=== PATIENT | female | born 1995 | race Caucasian/White ===

== ENCOUNTER 2017-01-25 18:13 | Emergency (ER) | payer OTHER ==
[2017-01-25 18:15] VITALS: BP 150/90; PULSE 110; RESP 25; O2SAT 100
--- NOTE | 2017-01-25 18:19 | PD ---
Physical Exam Time Seen by Provider: 18:18 Narrative 21yo C/o multiple laceration to left arm; r hand lacerations and R hand pain; decreased ROM to R 4th finger from dog bite wounds. Patient seen in triage. VS reviewed. Patient awaiting bed placement. Data Data Last Documented VS Vital Signs Date Time Temp Pulse Resp B/P Pulse Ox O2 Delivery O2 Flow Rate FiO2 01/25/17 18:15 110 25 150/90 100 MDM Supervised Visit with ROSEANN: Juani Lane Jan 25, 2017 18:19
--- NOTE | 2017-01-25 19:11 | PD ---
HPI Chief Complaint: Bite or Sting Time Seen by Provider: 19:09 Travel History International Travel<30 days: No Contact w/Intl Traveler<30days: No Traveled to known affect area: No History of Present Illness HPI Patient is a 21-year-old female presents emergency department for evaluation after a dog bite. Patient states she was trying to back and her new Labrador which she just adopted over for food and he bit her several times on the left upper extremity and once on the right hand. She is right-hand dominant. She states that the dog was adopted and pretty sure that the adoption agency vaccinations all the dogs prior to releasing them. She denies any injury to her neck head back chest abdomen or pelvis. States the incident happened just prior to arrival. Unclear when her last tetanus shot was. PFSH Past Medical History Medical History: Denies Significant Hx Past Surgical History Surgical History: No Previous Surgery Family History Family History: Negative Social History Tobacco Use: No Allergies-Medications (Allergen,Severity, Reaction): Coded Allergies: No Known Allergies (Unverified , 01/25/17) Reported Meds & Prescriptions Reported Meds & Active Scripts Active Augmentin (Amoxicillin-Clavulanate) 875-125 Mg Tab 1 Tab PO BID 10 Days Percocet (Oxycodone-Acetaminophen) 5-325 mg Tab 1 Tab PO Q6H PRN Review of Systems Except as stated in HPI: all other systems reviewed are Neg Physical Exam Narrative GENERAL: Well-nourished, well-developed patient. SKIN: Focused skin assessment warm/dry. Patient is a total of 4 lacerations and 12 puncture wounds to the left upper extremity, she also has a puncture room over the palmar aspect of the right ring finger as well as several small punctate abrasions to the right hand. The lacerations are over her humerus 2 over her dorsal forearm and one of her volar forearm. The largest is 2 cm over the humerus, there is a 1-1/2 cm laceration over the volar aspect distal forearm , one and a half centimeter over the dorsal aspect of the distal forearm, a V- shaped laceration over the mid dorsal forearm. Scattered puncture wounds throughout her entire left upper extremity. HEAD: Normocephalic. EYES: No scleral icterus. No injection or drainage. NECK: Supple, trachea midline. No JVD or lymphadenopathy. CARDIOVASCULAR: Regular rate and rhythm without murmurs, gallops, or rubs. RESPIRATORY: Breath sounds equal bilaterally. No accessory muscle use. GASTROINTESTINAL: Abdomen soft, non-tender, nondistended. MUSCULOSKELETAL: No cyanosis, or edema. Patient has full flexion and extension at all PIP DIP and MCP joints, full flexion and extension of the risk and elbow , opposition abduction and abduction and flexion extension of the thumbs are intact and equal bilaterally. Brisk capillary refill in all 10 digits. Bounding equal bilateral radial pulses. No obvious deformities. BACK: Nontender without obvious deformity. No CVA tenderness. Data Data Last Documented VS Vital Signs Date Time Temp Pulse Resp B/P Pulse Ox O2 Delivery O2 Flow Rate FiO2 01/25/17 18:15 110 25 150/90 100 Orders Hand, Complete ([id number]) (01/25/17 18:20) Forearm (2vws) (01/25/17 18:20) Piperacil-Tazo 4.5 Gm Premix (Zosyn 4.5 (01/25/17 19:15) Morphine Inj (Morphine Inj) (01/25/17 19:15) Azbf-Cmp-Yzthje (Booster) Inj (Boostrix (01/25/17 19:15) Lidocaine 1% Inj (50 Ml) (Xylocaine 1% I (01/25/17 20:00) Splint Or Brace Apply/Monitor (01/25/17 20:05) Lidocaine Pf 1% Inj (Xylocaine-Mpf 1% In (01/25/17 20:09) Finger Splint (01/25/17 ) MDM Medical Decision Making Medical Screen Exam Complete: Yes Emergency Medical Condition: Yes Differential Diagnosis Dog bite, fracture, open fracture, lacerations Narrative Course Patient was roomed in the emergency department, all of her wounds were irrigated copiously by emergency room tech with normal saline. I've inspected all the wounds and see no foreign bodies, several of the wounds required some approximation but this was done very loosely so that the wounds can continue to drain. She was given Zosyn emergency department. The patient was discussed with Dr. Silva who will see in follow-up and agrees with the management in the emergency department. Last 24 hours Impressions Radius/Ulna X-Ray 01/25/17 1820 Signed Impressions: Service Date/Time: Wednesday, January 25, 2017 18:51 - CONCLUSION: Osseous structures of the forearm are intact. Brooks Meneses MD Hand X-Ray 01/25/17 0250 Signed Impressions: Service Date/Time: Wednesday, January 25, 2017 18:54 - CONCLUSION: Displaced oblique fracture of the 4th digit proximal phalanx. Brooks Meneses MD Discussed the findings with the patient and recommended that she follow-up with Dr. Blum, she was placed in a splint. Wound instructions and had an extensive conversation about monitoring the dog for signs symptoms of rabies and illness and contacting the adoption agency to find out if the dog was indeed vaccinated. Discussed if there is any question as to the dog's rabies status to return to the emergency department for vaccinations. This does not sound like an unprovoked attack and I think the risk of rabies is relatively low. Procedures Procedure Narrative LACERATION LOCATION: Left upper extremity LENGTH: 4 lacerations totaling 6-1/2 cm NUMBER OF STITCHES/JERRI: 5 REPAIR: The area of the laceration was prepped with Betadine and sterilely draped. The laceration was infiltrated with Lidocaine 1% plain. The wound was copiously irrigated and explored without evidence of foreign body, tendon injury or neurovascular injury. The wound was closed using 30 proline. This was a single layer repair. A sterile dressing was applied. The patient was advised to keep the dressing clean and dry. Patient tolerated the procedure well. Diagnosis Primary Impression: Dog bite Additional Impression: Open fracture of phalanx of right ring finger Scripts Amoxicillin-Clavulanate (Augmentin)875-125 Mg Tab1 Tab PO BID 10 Days Ref 0 Prov:Jason Kumar MD 01/25/17 Oxycodone-Acetaminophen (Percocet)5-325 mg Tab1 Tab PO Q6H PRN (PAIN) #10 TAB Ref 0 Prov:Jason Kumar MD 01/25/17 Disposition: 01 DISCHARGE HOME Condition: Stable Jason Kumar MD Jan 25, 2017 19:11
[2017-01-25] MEDS ORDERED: MORPHINE SULFATE 8 MG/ML INJ IV PUSH ONE (19:15)
[2017-01-25] MEDS ORDERED: DIPHTH/TETANUS/ACEL PERTUSSIS (BOOSTER) 0.5 ML VIAL/PFS IM ONE (19:15)
[2017-01-25] MEDS ORDERED: PIPERACIL-TAZO 4.5 GM PREMIX 100 ML IV ONE (19:15)
--- NOTE | 2017-01-25 19:56 | RADRPT ---
EXAM DATE/TIME: 01/25/2017 18:51 [facility] COMPARISON: No previous studies available for comparison. INDICATIONS : Left forearm puncture wounds. Dog bite. MEDICAL HISTORY : None. SURGICAL HISTORY : None. ENCOUNTER: Initial ACUITY: 1 day PAIN SCORE: 7/10 LOCATION: Left forearm. FINDINGS: Two view examination of the left forearm demonstrates no evidence of fracture or dislocation. Bony m ineralization is normal. There are several areas of soft tissue irregularity and some subcutaneous g as along the lateral aspect of the distal forearm. No definite radiopaque foreign bodies.. CONCLUSION: Osseous structures of the forearm are intact. Brooks Meneses MD on January 25, 2017 at 19:53 Board Certified Radiologist. This report was verified electronically.
--- NOTE | 2017-01-25 19:57 | RADRPT ---
EXAM DATE/TIME: 01/25/2017 18:54 [facility] COMPARISON: No previous studies available for comparison. INDICATIONS : Right hand puncture wounds. Right ring finger swelling. Dog bit. MEDICAL HISTORY : None. SURGICAL HISTORY : None. ENCOUNTER: Initial ACUITY: 1 day PAIN SCORE: 7/10 LOCATION: Right hand. FINDINGS: There is an oblique fracture through the midshaft of the proximal phalanx of the 4th digit with one h snf shaft width lateral and anterior displacement. No intra-articular extension. No radiopaque fore ign bodies seen. The osseous structures of the remainder of the hand are intact. CONCLUSION: Displaced oblique fracture of the 4th digit proximal phalanx. Brooks Meneses MD on January 25, 2017 at 19:54 Board Certified Radiologist. This report was verified electronically.
[2017-01-25] MEDS ORDERED: LIDOCAINE HCL 1% 50 ML VIAL INFIL ONE (20:00)
[2017-01-25] MEDS ORDERED: LIDOCAINE HCL 1% PF 30 ML VIAL ONE (20:09)
[2017-01-25] MEDS ORDERED: PERC5TAB12 PO (20:58)
[2017-01-25] MEDS ORDERED: AUGM875T3 PO (20:58)
--- NOTE | 2017-01-25 20:59 | PD ---
HPI Chief Complaint: Bite or Sting Time Seen by Provider: 19:09 Travel History International Travel<30 days: No Contact w/Intl Traveler<30days: No Traveled to known affect area: No PFSH Past Medical History Medical other: Yes (FACTOR 5) Tetanus Vaccination: > 5 Years Influenza Vaccination: No ?: Not Past Surgical History Surgical History: No Previous Surgery Social History Alcohol Use: No Tobacco Use: No Substance Use: No Allergies-Medications (Allergen,Severity, Reaction): Coded Allergies: No Known Allergies (Unverified , 01/25/17) Reported Meds & Prescriptions Reported Meds & Active Scripts Active Augmentin (Amoxicillin-Clavulanate) 875-125 Mg Tab 1 Tab PO BID 10 Days Percocet (Oxycodone-Acetaminophen) 5-325 mg Tab 1 Tab PO Q6H PRN Data Data Last Documented VS Vital Signs Date Time Temp Pulse Resp B/P Pulse Ox O2 Delivery O2 Flow Rate FiO2 01/25/17 18:15 110 25 150/90 100 Orders Hand, Complete ([id number]) (01/25/17 18:20) Forearm (2vws) (01/25/17 18:20) Piperacil-Tazo 4.5 Gm Premix (Zosyn 4.5 (01/25/17 19:15) Morphine Inj (Morphine Inj) (01/25/17 19:15) Mili-Vrz-Opgkfu (Booster) Inj (Boostrix (01/25/17 19:15) Lidocaine 1% Inj (50 Ml) (Xylocaine 1% I (01/25/17 20:00) Splint Or Brace Apply/Monitor (01/25/17 20:05) Lidocaine Pf 1% Inj (Xylocaine-Mpf 1% In (01/25/17 20:09) Finger Splint (01/25/17 ) MDM Medical Decision Making Medical Screen Exam Complete: Yes Emergency Medical Condition: Yes Diagnosis Primary Impression: Dog bite Referrals: Jordan Blum III, MD Additional Instructions: Change dressings twice a day for the next 2 days, then leave open to air. Highly recommend that she follow-up with Dr. Blum the hand surgeon. The splint will need to be left in place until you do so. Watch for signs of infection which we have reviewed and return to the emergency department with any of these. Med/Other Pt SpecificInfo: Prescription(s) given Scripts Amoxicillin-Clavulanate (Augmentin)875-125 Mg Tab1 Tab PO BID 10 Days Ref 0 Prov:Jason Kumar MD 01/25/17 Oxycodone-Acetaminophen (Percocet)5-325 mg Tab1 Tab PO Q6H PRN (PAIN) #10 TAB Ref 0 Prov:Jason Kumar MD 01/25/17 Disposition: 01 DISCHARGE HOME Condition: Stable Jason Kumar MD Jan 25, 2017 20:59
[2017-01-30] MEDS ORDERED: ROBI0.2I3 PO (08:20)
== END 2017-01-25 21:42 | disposition home or self-care (01) ==
LOC: NEPD 18:13
DX: S61.451A Open bite of right hand, initial encounter (principal); S51.852A Open bite of left forearm, initial encounter; S62.614A Displaced fracture of proximal phalanx of right ring finger, initial encounter for closed fracture; W54.0XXA Bitten by dog, initial encounter
CPT/HCPCS: 12002; 29280; 73090; 73130; 90715; 96365; 96375; 99284; J2270; J2543

== ENCOUNTER → 2017-01-30 | Day surgery (SDC) | payer OTHER ==
[~2017-01-30] VITALS: Ht 177.8 cm; Wt 80.0 kg
[~2017-01-30] MED LIST: ACETAMINOPHEN/HYDROcodone 325 MG/5 MG TAB ONE; AUGM875T3 PO; BACITRACIN OPHT OINT 3.5 GM TUBO ONE; BACITRACIN TOP OINT 15 GM TUBE ONE; BUPIVACAINE HCL PF 0.5% 30 ML VIAL ONE; CHLORHEXIDINE GLUCONATE 2 % 1 PACK (2 CLOTHS) TOPICAL PRN; FAMOTIDINE 20 MG/2 ML VIAL ONE; INSULIN HUMAN REGULAR 1,000 UNITS/10 ML VIAL SQ PRN; LACTATED RINGER'S 1000 ML IV PRN; LIDOCAINE HCL 2% 50 ML VIAL ONE; MEPERIDINE HCL 50 MG/ML VIAL ONE; METOPROLOL TARTRATE 25 MG TAB PO PRN; MIDAZOLAM HCL 2 MG/2 ML VIAL ONE; MORPHINE SULFATE 4 MG/ML INJ ONE; NEOMYCIN/POLYMYXIN 1 ML G.U. IRRIGANT ONE; ONDANSETRON HCL 4 MG/2 ML VIAL IV PUSH ONE; PERC5TAB12 PO; POVIDONE IODINE 5% (ANTISEPSIS KIT) 4 APPLICATIONS EACH NARE PRN; PROPOFOL 200 MG/20 ML AMP IV ONE; ROBI0.2I3 PO; SODIUM CHLORID 0.9% 500 ML IV PRN; ceFAZolin 2 GM PREMIX 50 ML ONE; fentaNYL CITRATE 250 MCG/5 ML AMP ONE
[2017-01-30 08:27] VITALS: BP 110/71; PULSE 67; RESP 16; TEMP 97.6; O2SAT 100
--- NOTE | 2017-01-30 12:07 | PD.OP ---
Operative Report Preoperative Diagnosis: (1) Open fracture of phalanx of right ring finger Postoperative Diagnosis: (1) Open displaced fracture of proximal phalanx of right ring finger Procedure: open reduction and internal fixation with lag screws proximal phalanx right ring finger Anesthesia: general Surgeon: Buddy Salomon Vice President Corporate Communications(s): [email or web address] Operation and Findings: open displaced spiral fracture proximal phalanx right ring finger Buddy Salomon MD Jan 30, 2017 12:07
[2017-01-30 12:10] VITALS: BP 113/68; PULSE 100; RESP 18; TEMP 97.5; O2SAT 100
--- NOTE | 2017-02-01 13:15 | MP ---
cc: JEANA GOMEZ MD DATE OF SURGERY 01/30/2017 PREOPERATIVE DIAGNOSIS Open displaced spiral fracture proximal phalanx right ring finger. POSTOPERATIVE DIAGNOSIS Open displaced proximal phalanx fracture, spiral right ring finger. PROCEDURE Open reduction internal fixation with lag screws proximal phalanx right ring finger. SURGEON Jeana Gomez MD ANESTHESIA General ESTIMATED BLOOD LOSS Minimal TOURNIQUET TIME 94 minutes at 250 mmHg ESTIMATED BLOOD LOSS Minimal IMPLANTS USED Synthes 1.5 mm screws times two and 1 mm screw x1. CONDITION The patient was returned to the Recovery Room in stable condition. INDICATIONS The patient is a 21-year-old female who presented with complaints of dog bite to both upper extremities. She was found to have an open displaced spiral fracture proximal phalanx involving the right ring finger. She had an open wound over the volar aspect of the proximal phalanx region of the ring finger. She was consented for open reduction internal fixation. PROCEDURE NOTE The patient was brought to the operating room. Under general anesthesia, the right upper extremity was thoroughly prepped and draped. Closed reduction was initially attempted which was unsuccessful due to interposition of the soft tissues likely. Decision was made to proceed with open reduction. Incision site was marked in the mid axial region along the proximal phalanx of the ring finger on the radial aspect. The limb was exsanguinated with an Esmarch. Tourniquet was inflated to 250 mmHg. An incision was then made over the proposed incision site. Soft tissue dissection was carried out protecting the sensory branches. The extensor mechanism was then identified. It was retracted dorsally exposing the fracture surface. There was evidence of interposition of soft tissue. Initially, the soft tissue was cleared with no fractures or fissures and the spikes were reduced initially. Reduction was confirmed using the C-arm. A bone clamp was then placed and was held in place by a 0.45 K-wire. Initially this was confirmed using C-arm. No evidence of rotational deformity was noted. Three lag screws were then inserted perpendicular to the fracture surface initially drilling with 1.1 mm drill bit and then the proximal gliding hole was drilled using 1.5 mm drill bit. Two 1.5 mm screws were used measuring 12 mm and 8 mm. At the proximal aspect, 1 mm screw was used. A total of three screws were inserted in a lag fashion approximating the fracture surface. The K-wire was removed. The finger was put through range of motion. The fracture appeared stable. Multiple C-arm views were obtained including PA, lateral and oblique views. The fracture was well reduced and implants were well-placed. A thorough wash was given. The tourniquet was deferred. Total tourniquet time was 94 minutes. The patient had good distal circulation on release of the tourniquet. Bleeding points were cauterized with bipolar cautery. Skin was approximated using 5-0 nylon in a horizontal mattress interrupted fashion. She had good distal circulation at the end of the procedure. Xeroform, bacitracin dressing applied. Local anesthesia containing a mixture of 2% lidocaine and 0.5% Marcaine was injected across the incision site. A bulky hand dressing was applied which was held in place by [facility] and a dorsal splint was applied. The patient was recovered and sent to the Recovery Room in stable condition. She will follow up in two days time for a dressing and a splint change. Jeana Gomez MD SE/ARIADNA /12:07 PM /12:57 PM [facility]ITA
== END | disposition home or self-care (01) ==
LOC: PHSDC 07:52
PROVIDERS: ATTEND Surgery Surgery of the Hand
DX: S62.614B Displaced fracture of proximal phalanx of right ring finger, initial encounter for open fracture (principal); W54.0XXA Bitten by dog, initial encounter
CPT/HCPCS: 01830; 26735; 76000; C1713; J0690; J2175; J2250; J2270; J2405; J7120; J3010